=== PATIENT | female | born 1980 | race Caucasian/White ===

== ENCOUNTER 2017-07-27 02:27 | Emergency (ER) | payer OTHER ==
[~2017-07-27] VITALS: Ht 160 cm; Wt 110.0 kg
[~2017-07-27 02:27] MED LIST: METR250 PO; Z.0.NO CURRENT MEDS
[2017-07-27 02:30] VITALS: BP 149/72; PULSE 105; RESP 18; TEMP 98.6; O2SAT 98
[2017-07-27] MEDS ORDERED: SODIUM CHLORIDE 0.9% FLUSH 10 ML FLUSH IV FLUSH PRN (03:15)
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
[2017-07-27 04:10] LABS: AUTOMATED NEUTROPHIL # 5.2 TH/MM3 (1.8-7.7); BASOPHIL % 0.5 % (0.0-2.0); EOSINOPHIL # 0.3 TH/MM3 (0-0.4); EOSINOPHIL % 3.6 % (0.0-4.0); HEMATOCRIT 41.6 % (35.0-46.0); HEMO FLAGS DIFF FINAL; LYMPH % 18.4 % (9.0-44.0); LYMPHOCYTE # 1.4 TH/MM3 (1.0-4.8); MEAN CELL VOLUME 91.9 FL (80.0-100.0); MEAN CORPUSCULAR HEMOGLOBIN 31.2 PG (27.0-34.0); MONO % 6.9 % (0.0-8.0); NEUT % 70.6 % (16.0-70.0); PLATELET COUNT 161 TH/MM3 (150-450); RED BLOOD COUNT 4.52 MIL/MM3 (4.00-5.30); RED CELL DISTRIBUTION WIDTH 13.2 % (11.6-17.2); WHITE BLOOD COUNT 7.4 TH/MM3 (4.0-11.0)
[2017-07-27 04:46] LABS: BICARBONATE 28.8 MEQ/L (21.0-32.0); POTASSIUM 3.2 MEQ/L (3.5-5.1)
[2017-07-27] MEDS ORDERED: SODIUM CHLORID 0.9% 500 ML INJ 500 ML IV ONE (05:00)
[2017-07-27] MEDS ORDERED: POTASSIUM CHLORIDE 20 MEQ CONTROLLED RELEASE TAB PO ONE (05:00)
[2017-07-27] MEDS ORDERED: DEXAMETHASONE SOD PHOS 20 MG/5 ML VIAL IV PUSH ONE (05:00)
== END 2017-07-27 05:57 | disposition left against medical advice (07) ==
LOC: NEPD 02:27
DX: E87.6 Hypokalemia (principal); F17.200 Nicotine dependence, unspecified, uncomplicated; Z88.5 Allergy status to narcotic agent
CPT/HCPCS: 80048; 83605; 84703; 85025; 96361; 96374; 99284; J1100; J7040

== ENCOUNTER 2018-01-11 11:47 | Emergency (ER) | payer SELFPAY ==
[~2018-01-11] VITALS: Ht 160 cm; Wt 120.0 kg
[2018-01-11 11:51] VITALS: BP 113/78; PULSE 84; RESP 19; TEMP 97.6; O2SAT 96
--- NOTE | 2018-01-11 12:48 | PD ---
HPI Chief Complaint: Abdominal Pain Time Seen by Provider: 12:47 Travel History International Travel<30 days: No Contact w/Intl Traveler<30days: No Traveled to known affect area: No History of Present Illness HPI 37-year-old female presents emergency department with ongoing epigastric pain radiating into the right upper quadrant and back which is been ongoing for approximately 1 week. Patient has had nausea and vomiting associated with it. Patient states she had a full workup at [facility] in [place], including labs and CT scan, and was told she had gastritis, and treated with Bentyl and Pepcid. She has those labs and CT scan results. She states no improvement. Patient states history of pancreatitis in the past. She states she had her gallbladder out several years ago and has not had trouble since. Patient denies significant fever or chills. Patient denies recent alcohol use. She denies diarrhea. Pain is rated as 8 out of 10. She states she has not thrown up since yesterday. Patient denies urinary symptoms, or . She denies vaginal discharge. Pain is all localized to the upper abdominal region. She denies recent cough or chest pain. She states she is very allergic to codeine. PFSH Past Medical History Diminished Hearing: No Musculoskeletal: Yes (back pain) Pancreatitis: Yes Tetanus Vaccination: Unknown ?: Not LMP: 12/26/17 Past Surgical History Cholecystectomy: Yes Social History Alcohol Use: No Tobacco Use: Yes (/2 PPD) Substance Use: No Allergies-Medications (Allergen,Severity, Reaction): Coded Allergies: codeine (Verified Allergy, Intermediate, Hives, 01/11/18) Reported Meds & Prescriptions Reported Meds & Active Scripts Active No Active Prescriptions or Reported Medications Review of Systems Except as stated in HPI: all other systems reviewed are Neg General / Constitutional: No: Fever, Chills Eyes: No: Visual changes HENT: No: Headaches Cardiovascular: No: Chest Pain or Discomfort Respiratory: No: Cough, Shortness of Breath, Wheezing, Pleuritic Pain Gastrointestinal: Positive: Nausea, Vomiting, Abdominal Pain, Loss of Appetite , No: Hematemesis, Hematochezia, Constipation Genitourinary: No: Urgency, Frequency, Dysuria, Pelvic Pain, Flank Pain, Discharge, Vaginal Bleeding Musculoskeletal: No: Pain Skin: No Rash Neurologic: No: Weakness Psychiatric: No: Depression Endocrine: No: Polydipsia Hematologic/Lymphatic: No: Easy Bruising Physical Exam Narrative GENERAL: Patient appears in mild to moderate distress. She is obese SKIN: Warm and dry. Normal color. Normal turgor. No rash. No diaphoresis. HEAD: Atraumatic. Normocephalic. EYES: Pupils equal and round. No scleral icterus. No injection or drainage. ENT: No nasal bleeding or discharge. Mucous membranes pink and moist. Pharynx is clear. Airways patent. NECK: Trachea midline. Supple and nontender. CARDIOVASCULAR: Regular rate and rhythm. RESPIRATORY: No accessory muscle use. Clear to auscultation. Breath sounds equal bilaterally. GASTROINTESTINAL: Abdomen soft, moderate epigastric tenderness, nondistended. No guarding or rebound. Hepatic and splenic margins not palpable. No CVA tenderness. MUSCULOSKELETAL: Extremities without clubbing, cyanosis, or edema. No obvious deformities. NEUROLOGICAL: Awake and alert. No obvious cranial nerve deficits. Motor grossly within normal limits. Five out of 5 muscle strength in the arms and legs. Normal speech. PSYCHIATRIC: Appropriate mood and affect; insight and judgment normal. Data Data Last Documented VS Vital Signs Date Time Temp Pulse Resp B/P (MAP) Pulse Ox O2 Delivery O2 Flow Rate FiO2 01/11/18 13:17 20 97 Room Air 01/11/18 11:51 97.6 84 113/78 (90) Orders Orders Complete Blood Count With Diff (01/11/18 12:53) Comprehensive Metabolic Panel (01/11/18 12:53) Lipase (01/11/18 12:53) Lactic Acid (01/11/18 12:53) Urinalysis - C+S If Indicated (01/11/18 12:53) Iv Access Insert/Monitor (01/11/18 12:53) Ecg Monitoring (01/11/18 12:53) Oximetry (01/11/18 12:53) Sodium Chlor 0.9% 1000 Ml Inj (Ns 1000 M (01/11/18 12:53) Sodium Chloride 0.9% Flush (Ns Flush) (01/11/18 13:00) Famotidine Inj (Pepcid Inj) (01/11/18 13:00) Ketorolac Inj (Toradol Inj) (01/11/18 13:00) Al-Mag Hy-Si 40-40-4 Mg/Ml Liq (Mag-Al P (01/11/18 13:00) Lidocaine 2% Viscous (Xylocaine 2% Visco (01/11/18 13:00) Ondansetron Odt (Zofran Odt) (01/11/18 13:15) Labs Laboratory Tests Test 01/11/18 13:15 White Blood Count 6.9 TH/MM3 Red Blood Count 4.94 MIL/MM3 Hemoglobin 15.6 GM/DL Hematocrit 44.9 % Mean Corpuscular Volume 90.9 FL Mean Corpuscular Hemoglobin 31.6 PG Mean Corpuscular Hemoglobin Concent 34.8 % Red Cell Distribution Width 13.7 % Platelet Count 187 TH/MM3 Mean Platelet Volume 8.5 FL Neutrophils (%) (Auto) 67.5 % Lymphocytes (%) (Auto) 24.0 % Monocytes (%) (Auto) 6.7 % Eosinophils (%) (Auto) 1.4 % Basophils (%) (Auto) 0.4 % Neutrophils # (Auto) 4.7 TH/MM3 Lymphocytes # (Auto) 1.7 TH/MM3 Monocytes # (Auto) 0.5 TH/MM3 Eosinophils # (Auto) 0.1 TH/MM3 Basophils # (Auto) 0.0 TH/MM3 CBC Comment DIFF FINAL Differential Comment Urine Color YELLOW Urine Turbidity HAZY Urine pH 6.0 Urine Specific Toney 1.023 Urine Protein NEG mg/dL Urine Glucose (UA) NEG mg/dL Urine Ketones NEG mg/dL Urine Occult Blood SMALL Urine Nitrite NEG Urine Bilirubin NEG Urine Urobilinogen LESS THAN 2.0 MG/DL Urine Leukocyte Esterase SMALL Urine RBC 2 /hpf Urine WBC 1 /hpf Urine Squamous Epithelial Cells 15 /hpf Urine Bacteria FEW /hpf Urine Mucus FEW /lpf Microscopic Urinalysis Comment CULT NOT INDICATED Blood Urea Nitrogen 13 MG/DL Creatinine 0.68 MG/DL Random Glucose 85 MG/DL Total Protein 7.6 GM/DL Albumin 3.6 GM/DL Calcium Level 8.8 MG/DL Alkaline Phosphatase 69 U/L Aspartate Amino Transf (AST/SGOT) 16 U/L Alanine Aminotransferase (ALT/SGPT) 17 U/L Total Bilirubin 0.4 MG/DL Sodium Level 140 MEQ/L Potassium Level 4.1 MEQ/L Chloride Level 104 MEQ/L Carbon Dioxide Level 29.6 MEQ/L Anion Gap 6 MEQ/L Estimat Glomerular Filtration Rate 98 ML/MIN Lactic Acid Level 0.5 mmol/L Lipase 83 U/L [facility] Medical Decision Making Medical Screen Exam Complete: Yes Emergency Medical Condition: Yes Medical Record Reviewed: Yes (From [facility] in [place]) Differential Diagnosis Epigastric pain. Gastritis. Esophagitis. Pancreatitis. Biliary colic. Malingering. Narrative Course Patient appears medically stable at time of exam. Vital signs are unremarkable. Labs ordered including CBC, CMP, lipase, lactic acid, urinalysis, and urine . IV access is obtained the patient is given 20 mg famotidine IV, 30 mg ketorolac IV, GI cocktail p.o., and 1000 mL of normal saline bolus. Patient is given Zofran ODT 4 mg p.o. Repeat radiographic imaging is not felt warranted at this time. CBC is unremarkable. Chemistries are all within normal limits including lipase of 83. Lactic acid 0.5 per Urinalysis is unremarkable without signs of infection. Patient is felt to have gastritis. She will be treated with Carafate 1 g 4 times daily as directed. Patient also to start omeprazole 40 mg daily #30 Patient should avoid alcohol or spicy foods. Patient should follow-up with local primary care physician. Diagnosis Primary Impression: Gastritis Qualified Codes: K29.70 - Gastritis, unspecified, without bleeding Referrals: Primary Care Physician Patient Instructions: Diet for Stomach Ulcers and Gastritis (ED), General Instructions Additional Instructions: CBC is unremarkable. Chemistries are all within normal limits including lipase of 83. Lactic acid 0.5 per Urinalysis is unremarkable without signs of infection. Patient is felt to have gastritis. She will be treated with Carafate 1 g 4 times daily as directed. Patient also to start omeprazole 40 mg daily #30 Patient should avoid alcohol or spicy foods. Patient should follow-up with local primary care physician. Scripts No Active Prescriptions or Reported Meds Disposition: 01 DISCHARGE HOME Condition: Stable Justo Franz January 11, 2018 12:48
[2018-01-11] MEDS ORDERED: SODIUM CHLOR 0.9% 1000 ML INJ 1,000 ML IV SCH (12:53)
[2018-01-11] MEDS ORDERED: ALUMINUM/MAGNESIUM/SIMETH 30 ML CUP PO ONE (13:00)
[2018-01-11] MEDS ORDERED: SODIUM CHLORIDE 0.9% FLUSH 10 ML FLUSH IV FLUSH PRN (13:00)
[2018-01-11] MEDS ORDERED: FAMOTIDINE 20 MG/2 ML VIAL IV PUSH ONE (13:00)
[2018-01-11] MEDS ORDERED: KETOROLAC TROMETHAMINE 30 MG/ML (IVP) VIAL IVP ONE (13:00)
[2018-01-11] MEDS ORDERED: LIDOCAINE VISCOUS 2% SOLN 15 ML UDC PO ONE (13:00)
[2018-01-11] MEDS ORDERED: ONDANSETRON ODT 4 MG TAB PO ONE (13:15)
[2018-01-11 13:17] VITALS: RESP 20; O2SAT 97
[2018-01-11 13:31] LABS: AUTOMATED NEUTROPHIL # 4.7 TH/MM3 (1.8-7.7); BASOPHIL % 0.4 % (0.0-2.0); EOSINOPHIL # 0.1 TH/MM3 (0-0.4); EOSINOPHIL % 1.4 % (0.0-4.0); HEMATOCRIT 44.9 % (35.0-46.0); HEMOGLOBIN 15.6 GM/DL (11.6-15.3); LYMPHOCYTE # 1.7 TH/MM3 (1.0-4.8); MEAN CELL VOLUME 90.9 FL (80.0-100.0); MEAN CORPUSCULAR HEMOGLOBIN 31.6 PG (27.0-34.0); MEAN CORPUSCULAR HGB CONC 34.8 % (32.0-36.0); MEAN PLATELET VOLUME 8.5 FL (7.0-11.0); MONO % 6.7 % (0.0-8.0); MONOCYTE # 0.5 TH/MM3 (0-0.9); NEUT % 67.5 % (16.0-70.0); PLATELET COUNT 187 TH/MM3 (150-450); RED BLOOD COUNT 4.94 MIL/MM3 (4.00-5.30); RED CELL DISTRIBUTION WIDTH 13.7 % (11.6-17.2); WHITE BLOOD COUNT 6.9 TH/MM3 (4.0-11.0)
--- NOTE | 2018-01-11 13:31 | PD ---
Physical Exam Date Seen by Provider: January 11, 2018 Narrative I am seeing this patient with the PA for epigastric pain. Data Data Last Documented VS Vital Signs Date Time Temp Pulse Resp B/P (MAP) Pulse Ox O2 Delivery O2 Flow Rate FiO2 01/11/18 13:17 20 97 Room Air 01/11/18 11:51 97.6 84 113/78 (90) Orders Orders Complete Blood Count With Diff (01/11/18 12:53) Comprehensive Metabolic Panel (01/11/18 12:53) Lipase (01/11/18 12:53) Lactic Acid (01/11/18 12:53) Urinalysis - C+S If Indicated (01/11/18 12:53) Iv Access Insert/Monitor (01/11/18 12:53) Ecg Monitoring (01/11/18:53) Oximetry (01/11/18 12:53) Sodium Chlor 0.9% 1000 Ml Inj (Ns 1000 M (01/11/18 12:53) Sodium Chloride 0.9% Flush (Ns Flush) (01/11/18 13:00) Famotidine Inj (Pepcid Inj) (01/11/18 13:00) Ketorolac Inj (Toradol Inj) (01/11/18 13:00) Al-Mag Hy-Si 40-40-4 Mg/Ml Liq (Mag-Al P (01/11/18 13:00) Lidocaine 2% Viscous (Xylocaine 2% Visco (01/11/18 13:00) Ondansetron Odt (Zofran Odt) (01/11/18 13:15) Labs Laboratory Tests Test 01/11/18 13:15 MDM Supervised Visit with DARIUS: Yes Narrative Course I, Dr. Sepulveda, have reviewed the advance practice practitioner's documentation and am in agreement, met with the patient face to face, made the diagnosis, and the medical decision making was done by me. *My assessment and Findings: Patient is sitting up in the bed smiling in no distress. She states that she feels like she is dying. Her abdomen is soft but she does have tenderness in the epigastrium. Please see Ang Franz PA-C's note for results of laboratory and radiographic evaluation, ED course, final diagnosis and disposition Scripts No Active Prescriptions or Reported Meds Condition: Miriam Mireles MD January 11, 2018 13:31
[2018-01-11 13:40] LABS: BACTERIA, URINE FEW /hpf; BILIRUBIN, URINE NEG (NEG); BLOOD, URINE SMALL (NEG); GLUCOSE,URINE NEG (NEG); KETONE, URINE NEG (NEG); MUCUS URINE FEW /lpf (OCC); NITRITE,URINE NEG (NEG); SQUAMOUS EPITHELIAL CELL URINE 15 /hpf (0-5); URINE COLOR YELLOW (YELLW/STRAW); URINE LEUKOCYTE ESTERASE SMALL (NEG)
[2018-01-11 13:49] LABS: ALBUMIN 3.6 GM/DL (3.4-5.0); AST (GOT) 16 U/L (15-37); BICARBONATE 29.6 MEQ/L (21.0-32.0); BLOOD UREA NITROGEN 13 MG/DL (7-18); CALCIUM 8.8 MG/DL (8.5-10.1); CHLORIDE 104 MEQ/L (98-107); CREATININE 0.68 MG/DL (0.50-1.00); GLOMERULAR FILTRATION RATE 98 ML/MIN (>89); GLUCOSE,RANDOM 85 MG/DL (74-106); SODIUM (NA) 140 MEQ/L (136-145)
[2018-01-11 13:53] LABS: ALKALINE PHOSPHATASE 69 U/L (45-117); ALT (GPT) 17 U/L (10-53); TOTAL BILIRUBIN ADULT 0.4 MG/DL (0.2-1.0); TOTAL PROTEIN 7.6 GM/DL (6.4-8.2)
[2018-01-11] MEDS ORDERED: CARA1TAB6 PO (14:54)
[2018-01-11] MEDS ORDERED: OMEP40CA2 PO (14:54)
== END 2018-01-11 15:34 | disposition home or self-care (01) ==
LOC: NEPD 11:47
DX: K29.70 Gastritis, unspecified, without bleeding (principal); F17.200 Nicotine dependence, unspecified, uncomplicated
CPT/HCPCS: 80053; 81001; 83605; 83690; 85025; 96361; 96374; 96375; 99283; J1885; J7030